=== PATIENT | female | born 1975 | race Caucasian/White ===

== ENCOUNTER → 2017-06-20 | Outpatient (CLI) | payer OTHER ==
--- NOTE | 2017-06-20 15:23 | KCIC ---
THYROID ULTRASOUND History: Elevated thyroid level. Comparison: None. Technique: Multiple grayscale and color Doppler images of the thyroid gland were obtained. Findings: Measurements length, AP, and transverse, respectively, unless otherwise stated. The right thyroid lobe measures 6.1 x 2.3 x 2.2 cm. There is a heterogeneous mostly solid nodule in the mid right thyroid lobe with internal vascularity. Tiny echogenicities in the nodule may be microcalcifications. The nodule measures 31 x 15 x 24 mm. The left thyroid lobe measures 5.6 x 1.4 x 2.3 cm. There is a mostly solid nodule in the mid left thyroid lobe. There is vascularity peripherally. There is a cystic component medially. Nodule measures 23 x 12 x 17 mm. There is a mixed cystic and solid nodule of the isthmus right of midline inferiorly measuring 11 x 7 x 11 mm. There are other scattered sub-5 mm cysts or nodules in the right thyroid lobe. IMPRESSION: 1. There are dominant nodules in the right and left thyroid lobe. Further evaluation with FNA is recommended. 2. Thyroid gland is enlarged. General recommendations for nodules 1.0 cm or greater in largest diameter: Strongly consider FNA for: -A nodule 1.0 cm or more in largest diameter if microcalcifications are present. -A nodule 1.5 cm or more in largest diameter if the nodule is almost entirely solid or if coarse calcifications are present. -A nodule 2.0 cm or more in largest diameter if the nodule is mixed solid and cystic, or is almost entirely cystic with a solid mural nodule, or has had substantial growth since prior US studies. [employer] Consensus Conference Statement, October 2005, Volume 237, Issue 3 Electronically signed by: Serafin Doshi MD (06/20/2017 3:20 PM) [id number]
== END | disposition home or self-care (01) ==
LOC: KCIC US 12:57
PROVIDERS: ATTEND Physician Assistant Medical
DX: E04.2 Nontoxic multinodular goiter (principal)
CPT/HCPCS: 76536